=== PATIENT | male | born 1960 | race African-American/Black ===

== ENCOUNTER 2019-05-06 12:46 | Inpatient (IN) | payer MEDICAID, OTHER ==
[~2019-05-06] VITALS: Ht 186.7 cm; Wt 99.6 kg
[2019-05-09 20:58] VITALS: BP 147/97
== END 2019-05-09 21:21 | disposition home or self-care (01) | DRG 432 ==
LOC: SUATTDRO 13:19 → ED 13:45 → EDIP 13:50 → 4NOR 15:10
PROVIDERS: ADMIT Internal Medicine; ATTEND Internal Medicine
DX: K70.10 Alcoholic hepatitis without ascites (principal); K85.90 Acute pancreatitis without necrosis or infection, unspecified; E87.2 Acidosis; E11.9 Type 2 diabetes mellitus without complications; E78.5 Hyperlipidemia, unspecified; E83.39 Other disorders of phosphorus metabolism; E83.42 Hypomagnesemia; E87.6 Hypokalemia; F17.200 Nicotine dependence, unspecified, uncomplicated; I10 Essential (primary) hypertension; Z79.84 Long term (current) use of oral hypoglycemic drugs
CPT/HCPCS: 36415; 71275; 74160; 76700; 78227; 80048; 80053; 81001; 82962; 83036; 83605; 83690; 83735; 84100; 85025; 86361; 87040; 87086; 87324; 87536; 93005; 99285; G0378; J1335; J1650; J3480; Q9967; A9537; C9113; C9898; J0360; J1815; J2060; J2270; J2805; J3475; J7030; J7040